=== PATIENT | female | born 1955 | race Caucasian/White ===

== ENCOUNTER → 2020-02-25 | Outpatient (CLI) | payer OTHER ==
[~2020-02-25] MED LIST: COLACE 100MG C100 MG PO; ECOTRIN81 MG PO; FISH OIL 1,0001 EACH PO; NIACIN ER500 MG PO; NORCO 7.5-3251 EACH PO; VITAMIN D1000 UNIT PO
== END ==
LOC: MAMO 01-28 10:00
DX: Z12.31 Encounter for screening mammogram for malignant neoplasm of breast (principal); Z80.3 Family history of malignant neoplasm of breast
CPT/HCPCS: 77063; 77067